=== PATIENT | female | born 1930 | race Caucasian/White ===

== ENCOUNTER → 2016-09-13 | Outpatient (CLI) | payer MEDICARE, OTHER | END | disposition home or self-care (01) | LOC: GMAJ 11:41 | PROVIDERS: ATTEND Family Medicine | DX: I10 Essential (primary) hypertension (principal); E78.00 Pure hypercholesterolemia, unspecified ==

== ENCOUNTER → 2016-10-21 | Outpatient (CLI) | payer MEDICARE, OTHER ==
--- NOTE | 2016-10-21 15:52 | RAD ---
History: Pain. Pelvis: AP film is compared with 2014 study. 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 Extensive osteoarthritis right hip is apparent in a significantly osteopenic patient. No bony lesion or acute complication. IMPRESSION: Osteoarthritis right hip with osteonecrosis complicating a left hip fixation, stable since 2014. Right knee: AP, notch view, lateral and sunrise films are obtained. Joint space loss in all three joint compartments with bony osteophytes and small joint effusion. Significant osteopenia. No definite loose body or acute bony complication. IMPRESSION: Osteoarthritis right knee. Osteopenia. Electronically signed by: Nely Edgar MD 10/21/2016 3:45 PM CDT
== END ==
LOC: RAD 08:09
PROVIDERS: ATTEND Orthopaedic Surgery
DX: M25.551 Pain in right hip (principal); M17.11 Unilateral primary osteoarthritis, right knee; M25.561 Pain in right knee; Z01.818 Encounter for other preprocedural examination

== ENCOUNTER → 2017-01-25 | Outpatient (CLI) | payer MEDICARE, OTHER | END | disposition home or self-care (01) | LOC: GMAJ 11:20 | PROVIDERS: ATTEND Family Medicine | DX: I10 Essential (primary) hypertension (principal) ==

== ENCOUNTER → 2017-05-16 | Emergency (ER) | payer MEDICARE, OTHER ==
[2017-05-16 13:17] VITALS: BP 169/79; TEMP 98; O2SAT 96
--- NOTE | 2017-05-16 13:24 | ED.PDOC ---
History of Present Illness - General Chief Complaint: Trauma Stated Complaint: right sided pain Time Seen by Provider: 05/16/17 13:19 Source: patient Exam Limitations: no limitations Additional Information: PT TRIPPED AND FELL. C/O PAIN TO R HIP, R DISTAL FEMUR, R FOOT. - History of Present Illness Timing/Duration: other - 4 DAYS, Severity: moderate Improving Factors: nothing Worsening Factors: movement, other - IS HAVING DIFFICULTY AMBULATING Allergies/Adverse Reactions: Allergies NO KNOWN ALLERGY Allergy (Verified 12/16/12 09:40) Home Medications: Ambulatory Orders Ferrous Sulfate 325 mg PO TID #0 02/02/13 Oxybutynin Chloride [Ditropan] 5 mg PO BID #0 tab 02/02/13 Pravastatin Sodium 40 mg PO HS #0 02/02/13 Acetaminophen [Tylenol] 500 mg PO Q4-6H PRN 03/16/13 Docusate Sodium [Dulcolax Stool Softener] 100 mg PO DAILY PRN 03/16/13 Polyethylene Glycol 3350 [Miralax] 17 gm PO DAILY PRN 03/16/13 Magnesium Hydroxide [Milk Of Magnesia] 15 ml PO DAILY PRN #0 03/18/13 Cholecalciferol [Vitamin D] 1,000 unit PO DAILY 08/19/15 Citalopram Hydrobromide 10 mg PO DAILY 08/19/15 Furosemide 40 mg PO DAILY 08/19/15 Losartan Potassium 100 mg PO DAILY 08/19/15 Meloxicam 7.5 mg PO BIDFD 08/19/15 Multiple Vitamins W/ Minerals [Multivitamin Adults] 1 tab PO DAILY 08/19/15 Omeprazole [Prilosec Cap] 20 mg PO ACBK 08/19/15 Potassium Chloride [Potassium Chloride ER] 10 meq PO DAILY 08/19/15 Albuterol Sulfate Nebs [Proventil Nebs] 2.5 mg INH TID #50 vial 08/20/15 Azithromycin Tab [Zithromax] 250 mg PO QD #4 tab 08/20/15 Bifidobacterium Infantis [Align] 4 mg PO BID #20 cap 08/20/15 Cefuroxime Axetil [Ceftin] 500 mg PO BID #14 tab 08/20/15 Acetaminophen W/ Codeine [Tylenol W/ CODEINE #3] 1 ea PO Q6HR PRN #24 05/16/17 Review of Systems - Review of Systems Constitutional: Denies: chills, fever, weakness EENTM: States: no symptoms reported Respiratory: States: no symptoms reported Cardiology: States: no symptoms reported Gastrointestinal/Abdominal: States: no symptoms reported Genitourinary: States: other - NO INCONTINENCE Musculoskeletal: States: other - PAIN R HIP, R DISTAL FEMUR, R FOOT. Denies: back pain, neck pain Skin: States: other - BRUISING R GREAT TOE Neurological: Denies: numbness, paresthesia, weakness Endocrine: States: no symptoms reported Hematologic/Lymphatic: States: no symptoms reported Past Medical History (General) - Patient Medical History Hx Seizures: No Hx Stroke: No Hx Asthma: No Hx of COPD: No Hx Cardiac Disorders: No Hx Congestive Heart Failure: Yes Hx Pacemaker: No Hx Hypertension: Yes Hx Diabetes: No Hx Gastroesophageal Reflux: Yes Hx MRSA: No Surgical History: cholecystectomy, other - Vaccination History Hx Tetanus, Diphtheria Vaccination: - unknown Hx Influenza Vaccination: Yes - 2015 Hx Pneumococcal Vaccination: Yes - 2016 - Social History Hx Tobacco Use: No Hx Alcohol Use: No Hx Substance Use: No Hx Physical Abuse: No Hx Emotional Abuse: No Family Medical History - Family History Mother Family History: Unknown Living Status: Physical Exam - Physical Exam General Appearance: Alert, Anxious, No apparent distress Eye Exam: bilateral normal Ears, Nose, Throat: hearing grossly normal, normal ENT inspection Neck: non-tender, full range of motion, supple Respiratory: lungs clear, normal breath sounds, no respiratory distress Cardiovascular/Chest: regular rate, rhythm, no murmur Gastrointestinal/Abdominal: non tender, soft, no organomegaly Back Exam: normal inspection, no CVA tenderness, no vertebral tenderness Extremity: normal capillary refill, other - TTP R HIP, PELVIS TENDER TO ROCK, NO INSTABILITY, NO EVIDENCE OF TRAUMA, MILD TTP DISTAL FEMUR, NO EVIDENCE OF TRAUMA, R FOOT NL BUT ECCHYMOSIS AND SWELLING TO R GREAT TOE, NO BONY DEFORMITY , NVI Neurologic: no motor/sensory deficits, normal mood/affect, oriented x 3 Skin Exam: warm/dry, other - BRUISING Lymphatic: no adenopathy Progress - Progress Progress: 05/16/17 D/W PT. SHE PREFERS TO GO HOME WITH HER . - EKG/XRAY/CT XRAY: pelvis - R SUPERIOR PUBIC RAMI FX. Departure - Departure Clinical Impression: Fracture of pubic ramus Qualifiers: Encounter type: initial encounter Fracture type: closed Laterality: right Qualified Code(s): S32.591A - Other specified fracture of right pubis, initial encounter for closed fracture Disposition: Discharge to Home or Self Care Condition: Fair Departure Forms: ED Discharge - Pt. Copy, Patient Portal Self Enrollment Instructions: DI for Trauma Referrals: Daniel Schuster MD [Primary Care Provider] - 1-2 Weeks Prescriptions: Acetaminophen W/ Codeine [Tylenol W/ CODEINE #3] 1 ea PO Q6HR PRN #24 PRN Reason: Pain Home Medications: Ambulatory Orders Ferrous Sulfate 325 mg PO TID #0 02/02/13 Oxybutynin Chloride [Ditropan] 5 mg PO BID #0 tab 02/02/13 Pravastatin Sodium 40 mg PO HS #0 02/02/13 Acetaminophen [Tylenol] 500 mg PO Q4-6H PRN 03/16/13 Docusate Sodium [Dulcolax Stool Softener] 100 mg PO DAILY PRN 03/16/13 Polyethylene Glycol 3350 [Miralax] 17 gm PO DAILY PRN 03/16/13 Magnesium Hydroxide [Milk Of Magnesia] 15 ml PO DAILY PRN #0 03/18/13 Cholecalciferol [Vitamin D] 1,000 unit PO DAILY 08/19/15 Citalopram Hydrobromide 10 mg PO DAILY 08/19/15 Furosemide 40 mg PO DAILY 08/19/15 Losartan Potassium 100 mg PO DAILY 08/19/15 Meloxicam 7.5 mg PO BIDFD 08/19/15 Multiple Vitamins W/ Minerals [Multivitamin Adults] 1 tab PO DAILY 08/19/15 Omeprazole [Prilosec Cap] 20 mg PO ACBK 08/19/15 Potassium Chloride [Potassium Chloride ER] 10 meq PO DAILY 08/19/15 Albuterol Sulfate Nebs [Proventil Nebs] 2.5 mg INH TID #50 vial 08/20/15 Azithromycin Tab [Zithromax] 250 mg PO QD #4 tab 08/20/15 Bifidobacterium Infantis [Align] 4 mg PO BID #20 cap 08/20/15 Cefuroxime Axetil [Ceftin] 500 mg PO BID #14 tab 08/20/15 Acetaminophen W/ Codeine [Tylenol W/ CODEINE #3] 1 ea PO Q6HR PRN #24 05/16/17
--- NOTE | 2017-05-16 22:00 | RAD ---
EXAM DESCRIPTION: Foot,Right 3 Views CLINICAL HISTORY: 87 years, Female, FALL WITH PAIN COMPARISON: None TECHNIQUE: AP, lateral, and oblique views of the right foot FINDINGS: Arthritic changes are present on a diffuse bases. Bones are hypodense consistent with osteopenia versus osteoporosis. No fracture or bone lesion is detected. IMPRESSION: No acute process observed Electronically signed by: Magdaleno Mir MD 05/16/2017 2:23 PM [facility]
--- NOTE | 2017-05-16 22:00 | RAD ---
EXAM DESCRIPTION: Hip,Right 2 Views CLINICAL HISTORY: 87 years, Female, FALL WITH PAIN COMPARISON: None TECHNIQUE: AP and frog leg lateral views of the right hip FINDINGS: Severe arthritic changes right hip with loss of the joint space and very prominent marginal osteophyte formation observed. No hip fracture. There is a subtle acute appearing transverse fracture through the midportion of the right inferior pubic ramus. There is almost certainly an associated superior pubic ramus fracture which is not visualized. IMPRESSION: 1. Right inferior pubic ramus fracture-acute 2. Severe arthritic changes right hip Electronically signed by: Magdaleno Mir MD 05/16/2017 2:27 PM [facility]
--- NOTE | 2017-05-16 22:00 | RAD ---
EXAM DESCRIPTION: Pelvis CLINICAL HISTORY: FALL WITH PAIN COMPARISON: October 21, 2016 IMPRESSION: Single AP supine view of the pelvis shows no evidence of acute fracture, focal bone destruction, or joint dislocation. Osseous structures are diffusely osteopenic. Intramedullary lucrecia and gamma nail fixation of a healed left intertrochanteric fracture is again seen. There is severe advanced osteoarthritic changes of the left hip again seen with complete loss of the joint space and sclerotic changes to the acetabulum and adjacent femoral head. There is severe joint space narrowing of the right hip with moderate circumferential osteophyte of the femoral head and osteophytic ridging of the superior lateral acetabulum. Similar severe osteoarthritic changes of the right hip. Electronically signed by: Calderon Ramirez MD 05/16/2017 2:24 PM [facility]
--- NOTE | 2017-05-16 22:00 | RAD ---
EXAM DESCRIPTION: Femur,Right CLINICAL HISTORY: 87 years Female, FALL WITH PAIN COMPARISON: None. FINDINGS: 4 views right femur shows severe degenerative changes of the hip joint with loss of the joint space and very prominent marginal osteophyte formation. There is no fracture or bone lesion. IMPRESSION: Degenerative changes, no acute process observed. Electronically signed by: Magdaleno Mir MD 05/16/2017 2:22 PM [facility] [[email or web address]]
== END | disposition home or self-care (01) ==
LOC: ER 12:39
DX: S32.591A Other specified fracture of right pubis, initial encounter for closed fracture (principal); I11.0 Hypertensive heart disease with heart failure; I50.9 Heart failure, unspecified; K21.9 Gastro-esophageal reflux disease without esophagitis; Z79.899 Other long term (current) drug therapy; W01.0XXA Fall on same level from slipping, tripping and stumbling without subsequent striking against object, initial encounter; Y92.9 Unspecified place or not applicable

== ENCOUNTER 2017-06-05 08:48 | Inpatient (IN) | payer MEDICARE, OTHER ==
--- NOTE | 2017-06-05 10:18 | RAD ---
Procedure: XR CHEST 1 VIEW, Exam Date: 06/05/2017 9:00 AM FRONT COUNTER ATTENDANT Ordering Provider: Henri Flowers Clinical Indication: mild hypoxia Comparison: None Findings: Heart size is enlarged. Bilateral perihilar interstitial septal prominence is noted which is relatively mild. No pleural effusion or pneumothorax. No acute osseous FMLA. Severe bilateral glenohumeral osteoarthritis. Impression: Mild bilateral perihilar interstitial septal prominence probably from chronic interstitial lung disease or mild vascular congestion. Cardiomegaly. Procedure: XR HIP 2 OR MORE VIEWS, XR PELVIS 1-2 VIEWS Exam Date: 06/05/2017 9:00 AM FRONT COUNTER ATTENDANT Ordering Provider: Henri Flowers Clinical Indication: Pelvic pain Comparison: None Findings: There is a 5 mm diastases involving the right inferior pubic ramus. Severe left hip joint space narrowing and spurring is present. Moderate right hip joint space narrowing and spurring is seen. Antegrade intramedullary lucreica with proximal and distal interlocking screws are present. The helical neck screw appears to be beyond the confines of the subchondral bone plate by approximately 1 mm. IMPRESSION: 5 mm diastases involving the right inferior pubic ramus. This may be acute or subacute. Acuity could be confirmed with MRI. Advanced left hip degenerative joint disease with suggestion of subchondral bone plate irregularity/mild collapse. The helical neck screw is slightly beyond the confines of the subchondral bone plate of the femoral head. Remaining hardware is intact. Moderate right hip degenerative joint disease. Electronically signed by: Savanna Enamorado MD 06/05/2017 10:17 AM [facility]
--- NOTE | 2017-06-05 10:18 | RAD ---
Procedure: XR CHEST 1 VIEW, Exam Date: 06/05/2017 9:00 AM SUBSTATION OPERATOR APPRENTICE Ordering Provider: Henri Flowers Clinical Indication: mild hypoxia Comparison: None Findings: Heart size is enlarged. Bilateral perihilar interstitial septal prominence is noted which is relatively mild. No pleural effusion or pneumothorax. No acute osseous FMLA. Severe bilateral glenohumeral osteoarthritis. Impression: Mild bilateral perihilar interstitial septal prominence probably from chronic interstitial lung disease or mild vascular congestion. Cardiomegaly. Procedure: XR HIP 2 OR MORE VIEWS, XR PELVIS 1-2 VIEWS Exam Date: 06/05/2017 9:00 AM SUBSTATION OPERATOR APPRENTICE Ordering Provider: Henri Flowers Clinical Indication: Pelvic pain Comparison: None Findings: There is a 5 mm diastases involving the right inferior pubic ramus. Severe left hip joint space narrowing and spurring is present. Moderate right hip joint space narrowing and spurring is seen. Antegrade intramedullary lucrecia with proximal and distal interlocking screws are present. The helical neck screw appears to be beyond the confines of the subchondral bone plate by approximately 1 mm. IMPRESSION: 5 mm diastases involving the right inferior pubic ramus. This may be acute or subacute. Acuity could be confirmed with MRI. Advanced left hip degenerative joint disease with suggestion of subchondral bone plate irregularity/mild collapse. The helical neck screw is slightly beyond the confines of the subchondral bone plate of the femoral head. Remaining hardware is intact. Moderate right hip degenerative joint disease. Electronically signed by: Savanna Enamorado MD 06/05/2017 10:17 AM [facility]
--- NOTE | 2017-06-05 10:18 | RAD ---
Procedure: XR CHEST 1 VIEW, Exam Date: 06/05/2017 9:00 AM DOCK HAND Ordering Provider: Henri Flowers Clinical Indication: mild hypoxia Comparison: None Findings: Heart size is enlarged. Bilateral perihilar interstitial septal prominence is noted which is relatively mild. No pleural effusion or pneumothorax. No acute osseous FMLA. Severe bilateral glenohumeral osteoarthritis. Impression: Mild bilateral perihilar interstitial septal prominence probably from chronic interstitial lung disease or mild vascular congestion. Cardiomegaly. Procedure: XR HIP 2 OR MORE VIEWS, XR PELVIS 1-2 VIEWS Exam Date: 06/05/2017 9:00 AM DOCK HAND Ordering Provider: Henri Flowers Clinical Indication: Pelvic pain Comparison: None Findings: There is a 5 mm diastases involving the right inferior pubic ramus. Severe left hip joint space narrowing and spurring is present. Moderate right hip joint space narrowing and spurring is seen. Antegrade intramedullary lucrecia with proximal and distal interlocking screws are present. The helical neck screw appears to be beyond the confines of the subchondral bone plate by approximately 1 mm. IMPRESSION: 5 mm diastases involving the right inferior pubic ramus. This may be acute or subacute. Acuity could be confirmed with MRI. Advanced left hip degenerative joint disease with suggestion of subchondral bone plate irregularity/mild collapse. The helical neck screw is slightly beyond the confines of the subchondral bone plate of the femoral head. Remaining hardware is intact. Moderate right hip degenerative joint disease. Electronically signed by: Savanna Enamorado MD 06/05/2017 10:17 AM [facility]
[2017-06-05] MEDS ORDERED: FUROSEMIDE 40 MG TAB PO ONE (10:32)
--- NOTE | 2017-06-05 12:06 | CT ---
Procedure: CT PELVIS WITHOUT IV CONTRAST Exam Date: 06/05/2017 10:33 AM PRESS MACHINE OPERATOR Ordering Provider: Henri Flowers Clinical Indication: Revaluate pelvic fxr and left hip pain Comparison: Radiographs June 05, 2017 TECHNIQUE: The pelvis was scanned utilizing a multidetector helical scanner after administration of low osmolar IV contrast. Coronal and sagittal reformations were obtained. This exam was performed according to our departmental dose-optimization program which includes automated exposure control, adjustment of the mA and/or kV according to patient size and/or use of iterative reconstruction technique. DISCUSSION: There is evidence of a fracture involving the right superior pubic root without significant articular surface step-off. This fracture appears to be nondisplaced. There is an additional fracture involving the right inferior pubic ramus with one full shaft width displacement of the fracture fragment. This fracture appears to be subacute. There is surrounding mild callus formation. There is evidence of severe left hip joint space narrowing and degenerative spurring. Prominent subchondral cystic changes present. The femoral neck helical screw appears to abut the subchondral bone plate without steve extension beyond the confines of the bone. The intramedullary lucrecia appears to be intact proximally. Moderate right hip joint space narrowing and degenerative spurring is present. Intrapelvic contents demonstrate no acute abnormality. No free fluid or pathologic adenopathy is present. IMPRESSION: Subacute nondisplaced fracture of the right superior pubic root. Subacute displaced fracture of the right inferior pubic ramus. Advanced left hip joint osteoarthritis. Moderate right hip joint osteophyte arthritis. Electronically signed by: Savanna Enamorado MD 06/05/2017 12:05 PM PRESS MACHINE OPERATOR
[2017-06-05] MEDS ORDERED: FUROSEMIDE INJ 20 MG/2 ML VIAL IV ONE (12:39)
[2017-06-05] MEDS ORDERED: MORPHINE SULFATE INJ 10 MG/ML VIAL IV ONE (12:40)
--- NOTE | 2017-06-05 12:43 | ED.PDOC ---
History of Present Illness - General Chief Complaint: Lower Extremity Injury Stated Complaint: left hip pain Time Seen by Provider: 06/05/17 08:59 Source: patient, family Exam Limitations: no limitations - History of Present Illness Initial Comments: The patient is an 87-year-old female presenting to the emergency room from home by ambulance secondary to inability to get out of bed and move around. The patient apparently had a pubic rami fracture noted around Thanksgiving for which her pushed her around in a wheelchair for a week or 2 and then she started getting around with a walker. Over the last for 5 days she's been having some increasing pelvic and hip pain. No falls. She is alert and oriented and pleasant. She is also noted that she has had some increasing shortness of breath lying back over the last 5 or 6 days. No fever. No chest pain. No palpitations. No syncope or near syncope. She does report a history of some congestive heart failure.oxygen saturations here were around 85% with the patient lying back and awake. She does correct with supplemental oxygen. Timing/Duration: 1 week Severity: moderate Improving Factors: immobilization Worsening Factors: movement Associated Symptoms: denies symptoms Allergies/Adverse Reactions: Allergies NO KNOWN ALLERGY Allergy (Verified 12/16/12 09:40) Home Medications: Ambulatory Orders Ferrous Sulfate 325 mg PO TID #0 02/02/13 Oxybutynin Chloride [Ditropan] 5 mg PO BID #0 tab 02/02/13 Pravastatin Sodium 40 mg PO HS #0 02/02/13 Acetaminophen [Tylenol] 500 mg PO Q4-6H PRN 03/16/13 Docusate Sodium [Dulcolax Stool Softener] 100 mg PO DAILY PRN 03/16/13 Polyethylene Glycol 3350 [Miralax] 17 gm PO DAILY PRN 03/16/13 Magnesium Hydroxide [Milk Of Magnesia] 15 ml PO DAILY PRN #0 03/18/13 Cholecalciferol [Vitamin D] 1,000 unit PO DAILY 08/19/15 Citalopram Hydrobromide 10 mg PO DAILY 08/19/15 Furosemide 40 mg PO DAILY 08/19/15 Losartan Potassium 100 mg PO DAILY 08/19/15 Meloxicam 7.5 mg PO BIDFD 08/19/15 Multiple Vitamins W/ Minerals [Multivitamin Adults] 1 tab PO DAILY 08/19/15 Omeprazole [Prilosec Cap] 20 mg PO ACBK 08/19/15 Potassium Chloride [Potassium Chloride ER] 10 meq PO DAILY 08/19/15 Albuterol Sulfate Nebs [Proventil Nebs] 2.5 mg INH TID #50 vial 08/20/15 Acetaminophen W/ Codeine [Tylenol W/ CODEINE #3] 1 ea PO Q6HR PRN #24 05/16/17 Lisinopril 10 mg PO DAILY 06/05/17 Metoprolol Tartrate 50 mg PO DAILY 06/05/17 Review of Systems - Review of Systems Constitutional: States: no symptoms reported EENTM: States: no symptoms reported Respiratory: States: short of breath - ith activity and lying back Cardiology: States: no symptoms reported Gastrointestinal/Abdominal: States: no symptoms reported Genitourinary: States: no symptoms reported Musculoskeletal: States: see HPI Skin: States: no symptoms reported Neurological: States: no symptoms reported Endocrine: States: no symptoms reported All other Systems: No Change from Baseline Past Medical History (General) - Patient Medical History Hx Seizures: No Hx Stroke: No Hx Asthma: No Hx of COPD: No Hx Cardiac Disorders: No Hx Congestive Heart Failure: Yes Hx Pacemaker: No Hx Hypertension: Yes Hx Diabetes: No Hx Gastroesophageal Reflux: Yes Hx MRSA: No - Vaccination History Hx Tetanus, Diphtheria Vaccination: - unknown Hx Influenza Vaccination: Yes - 2015 Hx Pneumococcal Vaccination: Yes - 2016 - Social History Hx Tobacco Use: No Hx Alcohol Use: No Hx Substance Use: No Hx Physical Abuse: No Hx Emotional Abuse: No Family Medical History - Family History Mother Family History: Unknown Living Status: Physical Exam - Physical Exam General Appearance: Alert, No apparent distress Eye Exam: bilateral normal Ears, Nose, Throat: hearing grossly normal, normal ENT inspection, normal pharynx Neck: full range of motion, supple Respiratory: no respiratory distress, no accessory muscle use, other - mild bibasilar Rales Cardiovascular/Chest: normal peripheral pulses, no edema, other - regular rate Peripheral Pulses: radial,right: 2+, radial,left: 2+, dorsalis pedis,right: 2+, dorsalis pedis,left: 2+ Gastrointestinal/Abdominal: non tender, soft Rectal Exam: other - mild suprapubic discomfort palpation. Back Exam: no CVA tenderness, no vertebral tenderness Extremity: no calf tenderness, normal capillary refill, pedal edema - + edema bilateral lower extremities, other - pain in the pelvis withmovement against gravity in bilateral lower extremities. Passive range of motion is largely painless. Neurologic: choir accompanist II-XII nml as tested, alert, normal mood/affect, oriented x 3 Skin Exam: normal color Comments: Vital Signs - 24 hr 06/05/17 06/05/17 06/05/17 09:03 09:42 11:32 Temperature 98.6 F 98.5 F Pulse Rate [ 65 64 67 Left Brachial] Respiratory 20 18 20 Rate Blood Pressure 202/93 162/74 158/67 [Left Arm] O2 Sat by Pulse 87 L 95 93 L Oximetry Progress - Progress Progress: 06/05/17 12:45 the patient is an 87-year-old female presenting with worsening pain from what appears to be a nonhealing inferior and superior pubic rami fracture on the right. The patient for now is going to require bed rest. The patient will be admitted for pain management. She may yet require a Arias catheter. Orthopedics can evaluate in the morning for any further recommendations. Additionally the patient does appear to be having a CHF exacerbation that is mild in nature. We are going to diurese her today. Continue oxygen supplementation. Continue monitoring otherwise for now. She may yet need placement in a rehabilitation facility in order to heal the fractures and become functional again. - Results/Orders Results/Orders: Laboratory Tests 06/05/17 06/05/17 06/05/17 09:17 09:17 09:17 WBC 6.0 RBC 3.97 L Hgb 12.1 Hct 35.1 L MCV 88.3 MCH 30.4 MCHC 34.4 RDW 15.2 H Plt Count 199 MPV 7.8 Absolute Neuts (auto) 4.40 Absolute Lymphs (auto) 1.00 Absolute Monos (auto) 0.40 Absolute Eos (auto) 0.20 Absolute Basos (auto) 0.10 Neutrophils % 72.6 Lymphocytes % 16.0 L Monocytes % 7.5 Eosinophils % 3.0 Basophils % 0.9 D-Dimer, Quantitative 633 H* Sodium 134 L Potassium 4.3 Chloride 98 L Carbon Dioxide 28 Anion Gap 12.3 BUN 17 Creatinine 0.87 BUN/Creatinine Ratio 19.5 Random Glucose 111 H Serum Osmolality 270.5 L Calcium 9.5 Total Bilirubin 0.7 AST 38 ALT 27 Alkaline Phosphatase 83 Creatine Kinase 28 CK-MB (CK-2) 0.9 CK-MB (CK-2) % Not Reportable Troponin I < 0.02 B-Natriuretic Peptide 543.0 H* Serum Total Protein 7.4 Albumin 3.5 Globulin 3.9 H Albumin/Globulin Ratio 0.9 L chest x-ray does show some cardiomegaly and cephalization. No overt pneumonia. Pelvic x-ray shows a pubic rami fracture. CT scan of the pelvis shows subacute nondisplaced fracture of the right superior pubic rami. She also has subacute displaced fracture of the right inferior pubic rami. Departure - Departure Clinical Impression: Pelvic ring fracture with nonunion Acute exacerbation of CHF (congestive heart failure) Qualifiers: Congestive heart failure type: unspecified congestive heart failure type Qualified Code(s): I50.9 - Heart failure, unspecified Disposition: Admit Patient Home Medications: Ambulatory Orders Ferrous Sulfate 325 mg PO TID #0 02/02/13 Oxybutynin Chloride [Ditropan] 5 mg PO BID #0 tab 02/02/13 Pravastatin Sodium 40 mg PO HS #0 02/02/13 Acetaminophen [Tylenol] 500 mg PO Q4-6H PRN 03/16/13 Docusate Sodium [Dulcolax Stool Softener] 100 mg PO DAILY PRN 03/16/13 Polyethylene Glycol 3350 [Miralax] 17 gm PO DAILY PRN 03/16/13 Magnesium Hydroxide [Milk Of Magnesia] 15 ml PO DAILY PRN #0 03/18/13 Cholecalciferol [Vitamin D] 1,000 unit PO DAILY 08/19/15 Citalopram Hydrobromide 10 mg PO DAILY 08/19/15 Furosemide 40 mg PO DAILY 08/19/15 Losartan Potassium 100 mg PO DAILY 08/19/15 Meloxicam 7.5 mg PO BIDFD 08/19/15 Multiple Vitamins W/ Minerals [Multivitamin Adults] 1 tab PO DAILY 08/19/15 Omeprazole [Prilosec Cap] 20 mg PO ACBK 08/19/15 Potassium Chloride [Potassium Chloride ER] 10 meq PO DAILY 08/19/15 Albuterol Sulfate Nebs [Proventil Nebs] 2.5 mg INH TID #50 vial 08/20/15 Acetaminophen W/ Codeine [Tylenol W/ CODEINE #3] 1 ea PO Q6HR PRN #24 05/16/17 Lisinopril 10 mg PO DAILY 06/05/17 Metoprolol Tartrate 50 mg PO DAILY 06/05/17 Decision To Admit - Decistion To Admit Decision to Admit Reason: Medical Nature Decision to Admit Date: 06/05/17 Decision to Admit Time: 12:47
--- NOTE | 2017-06-05 13:45 | HP ---
SUPERVISING PHYSICIAN: Daniel Schuster M.D. CHIEF COMPLAINT: Lower extremity injury. Left hip pain. HISTORY OF PRESENT ILLNESS: Ms. Wolfe is an 87 year-old white female who appears her stated age. She is well-developed, well-nourished. She does not appear to be in any acute distress, however she does appear to be in pain any time she moves. She was unable to get out of bed today or move around and was brought to the Emergency Room by ambulance. She was evaluated there by Dr. Henri Flowers. She apparently fractured her pubic rami around Thanksgiving and states that she was wheelchair bound for a couple of weeks, then started getting around with a walker. Over the last few days she began to have increased pelvic pain and hip pain. She denies any falls. She is alert and oriented and very pleasant. She states that she also has been having some increased shortness of breath when lying on her back and has to prop up on pillows for the last 5 to 6 days. She denies fever, chest pain, palpitations, syncope or near syncopal episodes. She does report a history of some congestive heart failure and her saturations in the Emergency Room were around 85% when lying down. She does correct the desaturated state with oxygen supplementation. Dr. Flowers evaluated the patient with a chest x-ray indicating some cardiomegaly and no overt pneumonia. Her pelvic x-ray indicated a pelvic rami fracture. CT scan of the pelvis showed a subacute nondisplaced fracture of the right superior pubic rami. She also had a subacute displaced fracture of the right inferior pubic rami. Her blood count was benign. Her metabolic panel showed a slight electrolyte imbalance. Sodium was 134, potassium 4.3, chloride 98, CO2 was 28, BUN 17, creatinine 0.87, random glucose 111, calcium 9.5. AST 38, ALT 27, total bilirubin 0.7, alkaline phosphatase 83. CK was 28, CK-MB 0.9, troponin I was 0.02. BNP was 543. Total protein 7.4, albumin 35. The patient was then admitted to the Medical/ Surgical floor as an inpatient in stable condition for the displaced pelvic fracture, congestive heart failure and intractable pain. PAST MEDICAL HISTORY: 1. Hypertension. 2. Osteoarthritis. 3. Gastroesophageal reflux disease. 4. Constipation. 5. Incontinence of urine. 6. Diverticulosis. PAST SURGICAL HISTORY: 1. Cholecystectomy. 2. Hysterectomy. 3. Left hip replacement with surgical reduction and internal fixation in 2013. HOME MEDICATIONS: 1. Ferrous sulfate 325 mg p.o. t.i.d. 2. Ditropan 5 mg p.o. b.i.d. 3. Pravastatin 40 mg p.o. every h.s. 4. Tylenol 500 mg every 4 hours p.r.n. 5. Dulcolax stool softener 100 mg p.o. daily p.r.n. 6. MiraLAX 17 grams p.o. daily p.r.n. 7. Milk of Magnesia 15 mL p.o. daily p.r.n. 8. Vitamin D 1,000 international units p.o. daily. 9. Citalopram 10 mg p.o. daily. 10. Furosemide 40 mg p.o. daily. 11. Losartan potassium 100 mg p.o. daily. 12. Meloxicam 7.5 mg p.o. b.i.d. with food. 13. Multivitamin with minerals 1 tab p.o. daily. 14. Omeprazole 20 mg p.o. a.c. breakfast. 15. Potassium chloride 10 mEq p.o. daily. 16. Albuterol sulfate nebulized 2.5 mg inhaled t.i.d. 17. Tylenol with codeine #3, one p.o. every 6 hours p.r.n. pain. 18. Lisinopril 10 mg p.o. daily. 19. Metoprolol tartrate 50 mg p.o. daily. ALLERGIES: NO KNOWN DRUG ALLERGIES. FAMILY HISTORY: Unremarkable. SOCIAL HISTORY: She is . She lives in [place]. She has never smoked and is a nondrinker of alcohol. REVIEW OF SYSTEMS: CONSTITUTIONAL: No symptoms reported. ENT: No symptoms reported. RESPIRATORY: Short of breath with activity and lying on her back. CARDIOLOGY: No symptoms reported. GASTROINTESTINAL: No symptoms reported. GENITOURINARY: No symptoms reported. MUSCULOSKELETAL: See history of present illness. SKIN: No symptoms reported. NEUROLOGIC: No symptoms reported. ENDOCRINE: No symptoms reported. PHYSICAL EXAMINATION: VITAL SIGNS: Temperature 98.7, pulse 62, blood pressure 144/70, respiratory rate 22, oxygen saturation 97 with 2 liters nasal cannula. GENERAL: Alert. No apparent distress. She does appear to be in pain. HEENT: Pupils equal, round and reactive to light. Conjunctiva are clear. Sclera are clear and white. NECK: Soft and supple with no lymphadenopathy. Full range of motion. RESPIRATORY: Respiratory effort is even and unlabored. Breath sounds are clear to auscultation bilaterally with mild bibasilar rales. No murmurs, clicks or rubs. CARDIOVASCULAR: Regular rate and rhythm. Normal S1 and S2. Normal peripheral pulses. No edema. ABDOMEN: Soft. Bowel sounds are active in all 4 quadrants. No tenderness noted. No organomegaly. No masses palpated. EXTREMITIES: No calf tenderness. Normal capillary refill. There is only mild bilateral edema of the lower extremities bilaterally. Pain in the pelvis with movement against gravity and bilateral lower extremities. Passive range of motion is largely painless. PSYCHIATRIC: She has normal mood and affect. She is awake, alert and oriented times three. SKIN: Warm and dry. Normal color. LABORATORY: See History of Present Illness for laboratory and radiology. ASSESSMENT: 1. Displaced pelvic fracture. 2. Congestive heart failure. 3. Intractable pain. PLAN: Ms. Wolfe was admitted to the Medical/Surgical floor for further treatment and evaluation of her displaced pelvic fracture, congestive heart failure and intractable pain. She will be given routine pain medications to control her discomfort. She was given diuretic in the Emergency Room. She will be monitored throughout the night for worsening or improving of her congestive heart failure symptomatology. Dr. Pat will be consulted tomorrow regarding her displaced pelvic fracture. Physical Therapy will also be consulted for evaluation and treatment of her pelvic fracture as well as Electric [employer] Assembler for possible rehabilitation hospital admission. We anticipate her length of stay to be approximately 3 days. We will continue to monitor the patient closely and treat appropriately. Daniel Schuster M.D. is the physician collaborator who is available by telephone. [facility][id number] [facility]
[2017-06-05] MEDS ORDERED: SODIUM CHLORIDE 0.9% (FLUSH) 10 ML SYG IV PRN ×3 (17:21→17:30)
[2017-06-05] MEDS ORDERED: HYDROcodone 5MG/APAP 325MG 1 EA TAB PO PRN (17:26)
[2017-06-05] MEDS ORDERED: NITROGLYCERIN 0.4 MG 25 EA TAB SL PRN (17:30)
[2017-06-05] MEDS ORDERED: ENOXAPARIN SODIUM 40 MG/0.4 ML SYG SUBCU SCH (17:30)
[2017-06-05] MEDS ORDERED: IV SET AND CAP CHANGE INJ INJ SCH ×3 (17:30)
[2017-06-05] MEDS ORDERED: POLYETHYLENE GLYCOL 3350 17 GM PCKT PO PRN (20:54)
[2017-06-05] MEDS ORDERED: ACETAMINOPHEN 500 MG TAB PO PRN (20:54)
[2017-06-05] MEDS ORDERED: DOCUSATE SODIUM 100 MG CAP PO PRN (20:54)
[2017-06-05] MEDS ORDERED: ACETAMINOPHEN W/COD #3 TAB 1 EA TAB PO PRN (20:54)
[2017-06-05] MEDS ORDERED: MAGNESIUM HYDROXIDE 30 ML UD PO PRN (20:54)
[2017-06-05] MEDS ORDERED: NON-FORMULARY MEDICATION 1 EA MIS (Ferrous Sulfate [Ferrous Sulfate] 325 MG) PO SCH (21:00)
[2017-06-05] MEDS ORDERED: NON-FORMULARY MEDICATION 1 EA MIS (Pravastatin Sodium [Pravastatin Sodium] 40 MG) PO SCH (21:00)
[2017-06-05] MEDS ORDERED: FERROUS SULFATE 325 MG TAB ONE (21:28)
[2017-06-05] MEDS ORDERED: PRAVASTATIN SODIUM 20 MG TAB ONE (21:28)
[2017-06-05] MEDS: HYDROcodone 5MG/APAP 325MG 1 EA TAB PO SCH (21:37)
[2017-06-05] MEDS: SODIUM CHLORIDE 0.9% (FLUSH) 10 ML SYG IV SCH (21:37)
[2017-06-05] MEDS: OXYBUTYNIN CL 5 MG TAB PO SCH (21:39)
[2017-06-05] MEDS: ALBUTEROL SULFATE 2.5 MG/3 ML VIAL NEB SCH (22:58)
[2017-06-06] MEDS ORDERED: OMEPRAZOLE CAP 20 MG CAP PO SCH (07:00)
[2017-06-06] MEDS: MELOXICAM 7.5 MG TAB PO SCH ×2 (07:44→17:32)
[2017-06-06] MEDS ORDERED: METOPROLOL TARTRATE 50 MG TAB PO SCH (09:00)
[2017-06-06] MEDS: ALBUTEROL SULFATE 2.5 MG/3 ML VIAL NEB SCH ×3 (09:08→20:41)
[2017-06-06] MEDS: HYDROcodone 5MG/APAP 325MG 1 EA TAB PO SCH (10:52)
[2017-06-06] MEDS: LOSARTAN POTASSIUM 100 MG TAB PO SCH (10:52)
[2017-06-06] MEDS: MULTIPLE VITAMINS W/ MINERALS 1 EA TAB PO SCH (10:53)
[2017-06-06] MEDS: CHOLECALCIFEROL 2,000 IU TAB PO SCH (10:54)
[2017-06-06] MEDS: CITALOPRAM HBR 20 MG TAB PO SCH (10:55)
[2017-06-06] MEDS: SODIUM CHLORIDE 0.9% (FLUSH) 10 ML SYG IV SCH ×2 (10:56→20:55)
[2017-06-06] MEDS: FUROSEMIDE 40 MG TAB PO SCH (10:56)
[2017-06-06] MEDS: OXYBUTYNIN CL 5 MG TAB PO SCH ×2 (10:56→20:54)
[2017-06-06] MEDS: POTASSIUM CHLORIDE 10 MEQ TAB PO SCH (10:56)
[2017-06-06] MEDS: METOPROLOL SUCCINATE XL 50 MG TAB PO SCH (12:47)
[2017-06-06] MEDS: FERROUS SULFATE 325 MG TAB PO SCH ×2 (12:47→17:32)
--- NOTE | 2017-06-06 18:45 | PN ---
DATE: 06/06/17 SUPERVISING PHYSICIAN: Ricki Flowers M.D. SUBJECTIVE: The patient is lying in her hospital bed. She has no complaints of chest pain, shortness of breath, nausea or vomiting. Her pain is fairly well controlled but she says she still gets sore quite frequently and she is concerned about what she is supposed to do after she is discharged. OBJECTIVE: VITAL SIGNS: She is afebrile, heart rate 64, blood pressure 122/69, respiratory rate 20, O2 sat is 98%. RESPIRATORY: Clear to auscultation bilaterally. CARDIAC: Regular rate and rhythm. GASTROINTESTINAL: Abdomen is soft, nondistended, non-tender. Bowel sounds are positive. EXTREMITIES: No cyanosis, clubbing or edema. NEUROLOGIC: She is alert and oriented times three. LABORATORY: WBCs are 4.7 with hemoglobin 11.8, hematocrit 35.1. Chemistries are basically within normal limits with the exception of her chloride is slightly low at 95, BNP is 219. All other labs and films have been reviewed via the EMR. ASSESSMENT: 1. Subacute nondisplaced fracture of the right superior pubic root. 2. Subacute displaced fracture of the right inferior pubic ramus. 3. Congestive heart failure of unknown etiology with a BNP on admission of 543. 4. Intractable pain. PLAN: We will continue present supportive care. It would be beneficial to call Dr. Schuster' office tomorrow to see if there is a recent echo available. I will also order a chest x-ray in the morning as well as some routine labs. We will await Dr. Pat's consultation before planning discharge. Most likely will need to go to a rehab facility. She will continue with her physical therapy. I have ordered some routine lab for in the morning. Meanwhile we will continue to monitor closely and followup as needed. Dr. Flowers is the collaborating physician available for consultation. #[id number] [facility]
[2017-06-06] MEDS: PRAVASTATIN SODIUM 20 MG TAB PO SCH (20:54)
[2017-06-06] MEDS: ENOXAPARIN SODIUM 40 MG/0.4 ML SYG SUBCU SCH (20:55)
[2017-06-07] MEDS ORDERED: OMEPRAZOLE CAP 20 MG CAP ONE (01:49)
[2017-06-07] MEDS: OMEPRAZOLE CAP 20 MG CAP PO SCH (06:27)
--- NOTE | 2017-06-07 07:15 | RAD ---
EXAM DESCRIPTION: Chest,1 View CLINICAL HISTORY: chf COMPARISON: June 05, 2017 FINDINGS: The heart is enlarged but stable. Mediastinal contours are otherwise unremarkable. There is no airspace consolidation or pleural effusion. Again seen is subtle interstitial prominence in both lungs. There is no pneumothorax or acute fracture. IMPRESSION: Cardiomegaly and possible mild central pulmonary vascular congestion versus chronic interstitial lung disease. Electronically signed by: Axel Munoz MD 06/07/2017 7:14 AM [employer]
[2017-06-07] MEDS: FERROUS SULFATE 325 MG TAB PO SCH ×3 (07:21→17:26)
[2017-06-07] MEDS: POTASSIUM CHLORIDE 10 MEQ TAB PO SCH (07:21)
[2017-06-07] MEDS: MELOXICAM 7.5 MG TAB PO SCH ×2 (07:23→17:26)
[2017-06-07] MEDS: ALBUTEROL SULFATE 2.5 MG/3 ML VIAL NEB SCH ×3 (07:35→19:45)
--- NOTE | 2017-06-07 08:25 | CONS ---
HISTORY OF PRESENT ILLNESS: Ms. Wolfe is an 87-year-old female that fell. She has actually fallen a couple of times over the course of the past few weeks. She fell recently and was having some pain for which she was admitted. The pain she complains of is more in the left shoulder than anything else. She states she did have some pain in the right knee as well. Currently, she is doing well and is resting without any significant discomfort. I was consulted because x-rays revealed a fracture which was subsequently evaluated with a CT scan. Ms. Wolfe is actually not complaining of significant pain in the pelvic region. PAST MEDICAL HISTORY: 1. Hypertension. 2. Arthritis. 3. Gastroesophageal reflux disease. 4. Constipation. 5. Diverticulosis. PAST SURGICAL HISTORY: 1. Cholecystectomy. 2. Hysterectomy. 3. Intramedullary nailing of the left hip. CURRENT MEDICATIONS: Please see the current nursing assessment for an up to date list. ALLERGIES: NO KNOWN DRUG ALLERGIES. SOCIAL HISTORY: The patient does not drink, smoke or use any illicit drugs. FAMILY HISTORY: None pertinent to today's complaint. REVIEW OF SYSTEMS: Negative except as indicated in the History of Present Illness. PHYSICAL EXAMINATION: VITAL SIGNS: Blood pressure 144/70. Respirations 22. O2 saturation 97%. MENTAL STATUS: The patient is awake, alert, and is able to give a good history and participate in the physical. The patient is oriented to person, place and time. SKIN: Normal tone and turgor. HEENT: Normocephalic, atraumatic. Pupils equal, round and reactive. Mucosal membranes are moist. NECK: Normal range of motion. No thyromegaly, no lymphadenopathy. CHEST: Normal respiratory excursion. CARDIAC: Regular rate and rhythm. No murmurs, rubs or gallops. MUSCULOSKELETAL: She has intact sensation in both upper extremities. She is moving them freely and there are no outward signs of trauma and no deformities. She does have pain to palpation in the left shoulder, but it is relatively minor. Otherwise, she has no pain and no difficulty with movement of the lower arm. The pelvis does not cause significant pain with palpation over the pubic ramus. She has no significant pain to anterior/posterior compression of the iliac wings. Sensation is intact in both extremities. She does have pain in the knee to palpation. There is no significant swelling, bruising or outward signs of trauma. There is no deformity. IMAGING: X-rays of the pelvis show a superior and inferior ramus fracture on the right. She had no x-rays of the shoulder or knee done. ASSESSMENT: 1. Pelvis fracture. 2. Shoulder pain. 3. Knee pain. PLAN: At this point, I think the pelvis is stable enough for her to ambulate. We are going to get x-rays on both her knee and her shoulder and to make sure she does not have any breaks there. Otherwise, I think it will be okay for her to begin at least partial weight-bearing and progress as tolerated. X-rays have been ordered and we will review those after they are done. #[id number] [facility]
--- NOTE | 2017-06-07 09:04 | RAD ---
Right knee 3 views INDICATION: Knee pain chronic IMPRESSION: Bones are osteopenic. Advanced osteoarthrosis throughout the knee. No acute fracture or aggressive destructive process. Small suprapatellar effusion. Advanced lateral tibiofemoral and patellofemoral joint space narrowing. Electronically signed by: Phoenix Coleman MD 06/07/2017 9:03 AM [facility]
--- NOTE | 2017-06-07 09:06 | RAD ---
Left shoulder 1 view INDICATION: Shoulder pain IMPRESSION: Limited one view left shoulder. Advanced osteoarthrosis of the glenohumeral joint. Bones are osteopenic. Mild osteoarthrosis of the AC joint limited. No evidence of acute fracture or focal destructive process Electronically signed by: Phoenix Coleman MD 06/07/2017 9:05 AM [facility]
[2017-06-07] MEDS: SODIUM CHLORIDE 0.9% (FLUSH) 10 ML SYG IV SCH ×2 (09:46→20:44)
[2017-06-07] MEDS: MULTIPLE VITAMINS W/ MINERALS 1 EA TAB PO SCH (09:46)
[2017-06-07] MEDS: LOSARTAN POTASSIUM 100 MG TAB PO SCH (09:47)
[2017-06-07] MEDS: FUROSEMIDE 40 MG TAB PO SCH (09:48)
[2017-06-07] MEDS: CITALOPRAM HBR 20 MG TAB PO SCH (09:48)
[2017-06-07] MEDS: OXYBUTYNIN CL 5 MG TAB PO SCH ×2 (09:49→20:45)
[2017-06-07] MEDS: METOPROLOL SUCCINATE XL 50 MG TAB PO SCH (09:49)
[2017-06-07] MEDS: CHOLECALCIFEROL 2,000 IU TAB PO SCH (09:50)
--- NOTE | 2017-06-07 12:27 | RAD ---
EXAM DESCRIPTION: Shoulder,Left 2 or More Views CLINICAL HISTORY: pain COMPARISON: Same date earlier time IMPRESSION: 4 views of the left shoulder again demonstrate diffuse osteopenia of the osseous structures. No acute appearing fracture, focal bone destruction, or joint dislocation is seen. Severe narrowing of the glenohumeral joint is seen with hypertrophic osteophytic ridging of the glenoid with severe osteoarthritic changes. Mild osteoarthritic changes of the acromioclavicular joint are seen. Electronically signed by: Calderon Ramirez MD 06/07/2017 12:26 PM [facility]
[2017-06-07] MEDS: PRAVASTATIN SODIUM 20 MG TAB PO SCH (20:44)
[2017-06-07] MEDS: ENOXAPARIN SODIUM 40 MG/0.4 ML SYG SUBCU SCH (20:44)
[2017-06-08] MEDS: OMEPRAZOLE CAP 20 MG CAP PO SCH (06:25)
[2017-06-08] MEDS: MELOXICAM 7.5 MG TAB PO SCH (08:01)
[2017-06-08] MEDS: MULTIPLE VITAMINS W/ MINERALS 1 EA TAB PO SCH (08:01)
[2017-06-08] MEDS: CHOLECALCIFEROL 2,000 IU TAB PO SCH (08:01)
[2017-06-08] MEDS: POTASSIUM CHLORIDE 10 MEQ TAB PO SCH (08:01)
[2017-06-08] MEDS: FUROSEMIDE 40 MG TAB PO SCH (08:01)
[2017-06-08] MEDS: LOSARTAN POTASSIUM 100 MG TAB PO SCH (08:01)
[2017-06-08] MEDS: METOPROLOL SUCCINATE XL 50 MG TAB PO SCH (08:01)
[2017-06-08] MEDS: CITALOPRAM HBR 20 MG TAB PO SCH (08:01)
[2017-06-08] MEDS: OXYBUTYNIN CL 5 MG TAB PO SCH (08:01)
[2017-06-08] MEDS: FERROUS SULFATE 325 MG TAB PO SCH ×2 (08:02→11:29)
[2017-06-08] MEDS: SODIUM CHLORIDE 0.9% (FLUSH) 10 ML SYG IV SCH ×2 (08:04→08:06)
--- NOTE | 2017-06-08 08:34 | PN ---
SUPERVISING PHYSICIAN: Ricki Flowers MD DATE: 06/07/17 SUBJECTIVE: The patient is lying in her hospital bed. She has no complaints of chest pain, shortness of breath, nausea, vomiting, or abdominal pain. We discussed that she would increase her physical therapy today and we discussed her visit with Dr. Pat, orthopedic surgeon. She has questions about her strength upon returning home and hopes to return home at some point after she regains some of her strength. OBJECTIVE: VITAL SIGNS: Afebrile. Heart rate 60. Blood pressure 132/70. Respiratory rate 16. O2 saturation 96% on 1 liter nasal cannula. LUNGS: Essentially clear to auscultation bilaterally. CARDIAC: Regular rate and rhythm. ABDOMEN: Soft, nondistended, nontender. Bowel sounds are positive. NEUROLOGIC: Awake, alert and oriented times three. LABORATORY: Sodium 131, potassium 4.6, chloride 93, BUN 28. Her shoulder x- ray per radiologic interpretation shows, four views of left shoulder, demonstrates diffuse osteopenia of the osseous structure, no acute appearing fracture, focal bone destruction or joint dislocation is seen. Severe narrowing of the glenohumeral joint is seen with hypertrophic osteophytic ridging of the glenoid with severe osteoarthritic changes, mild osteoarthritic changes of the acromioclavicular joint seen. Her knee x-ray per radiologic interpretation shows both bones osteopenic with advanced osteoarthritis throughout the knee, no acute fracture or aggressive destructive process. Small suprapatellar effusion. Advanced lateral tibial, femoral and patellofemoral joint space narrowing. All other labs and films have been reviewed via the EMR. ASSESSMENT: 1. Subacute nondisplaced fracture of the right superior pubic root. 2. Subacute displaced fracture of the right inferior pubic ramus. 3. Shoulder pain. 4. Knee pain. 5. Congestive heart failure of unknown etiology with a BNP on admission of 543. 6. Intractable pain. PLAN: We will continue present supportive care. Dr. Pat has seen the patient and physical therapy is continuing with strengthening and conditioning as per Dr. Pat's orders. We will need to begin discharge planning whether that be at a rehab facility, Swing Bed admission or to the longterm. She will continue to need strengthening and conditioning over the next several weeks. I have ordered some routine labs for in the morning as well as a [employer] consult. We will continue to monitor the patient closely and follow as needed. Dr. Flowers is the collaborating physician and available for consultation. [facility][id number] [facility]
[2017-06-08] MEDS: ALBUTEROL SULFATE 2.5 MG/3 ML VIAL NEB SCH ×2 (08:51→14:20)
[2017-06-08 14:50] VITALS: BP 137/75; TEMP 98.8; O2SAT 100
--- NOTE | 2017-06-16 14:15 | DS ---
SUPERVISING PHYSICIAN: Ricki Flowers MD DISCHARGE DIAGNOSIS: 1. Subacute nondisplaced fracture of the right superior pubic root. 2. Subacute displaced fracture of the right inferior pubic ramus. 3. Shoulder pain. 4. Knee pain. 5. Congestive heart failure of unknown etiology with a BNP on admission of 543. 6. Intractable pain. HISTORY OF PRESENT ILLNESS: This is an 87-year-old female patient who originally came to the hospital on 06/05/17. She was brought to the Emergency Room and was evaluated by Dr. Henri Flowers. She had been in pain every time she moved. She had a difficult time getting up from a seated or lying position. Around , she apparently fractured her pubic rami and has been wheelchair bound since. She has had increased pelvic and hip pain and denies any falls since that time. She also had some shortness of breath and had to use several pillows for 5 to 6 days prior to admission. She denied any fever, chest pain, palpitations, syncope or near syncopal episodes. She has some congestive heart failure and her saturations in the Emergency Room were around 85% when lying down. Oxygen supplementation corrected her O2 saturations. Her pelvic x-ray indicated a pelvic rami fracture and CT of the pelvis showed a subacute nondisplaced fracture of the right superior pubic ramus. She also had a subacute displaced fracture of the right inferior pubic ramus. Her sodium was slightly low at 134, potassium 4.3, chloride 98, CO2 was 28, BUN 17, creatinine 0.87. She was admitted to the Medical/Surgical floor as an inpatient for the congestive heart failure and intractable pain as well as displaced pelvic fracture. HOSPITAL COURSE: Over the course of her hospital stay, her breathing improved. She was diuresed significantly and her oxygen remained stable. Chest x-ray improved. Her pain was controlled with [place]. Dr. Pat evaluated the patient and recommended physical therapy and to utilize Dr. Pat's orders. She will be discharged to [facility] for physical therapy. DISCHARGE PLAN: The patient will be discharged to [facility] for physical therapy for strengthening and conditioning. They are to follow Dr. Pat's orders for physical therapy. She will be discharged on some [place] pain medication and she is to followup with Dr. Schuster on discharge from [facility] or within 2 weeks. She is to resume a diabetic diet. She is to followup with the hospital or Dr. Trotter for any further problems or complications. DISCHARGE MEDICATIONS: 1. Ditropan. 2. Ferrous sulfate. 3. Pravastatin. 4. MiraLAX. 5. Acetaminophen. 6. Dulcolax. 7. Milk of Magnesia. 8. Multivitamins. 9. Potassium chloride. 10. Citalopram. 11. Losartan. 12. Furosemide. 13. Vitamin D. 14. Meloxicam. 15. Omeprazole. 16. Albuterol sulfate. 17. Lisinopril. 18. Metoprolol succinate. 19. Hydrocodone. Dr. Flowers is the collaborating physician and available for consultation. #[id number] [facility]
== END 2017-06-08 16:01 | DRG 565 ==
LOC: ER 08:48 → MS 13:44
PROVIDERS: ADMIT Nurse Practitioner Family; ATTEND Nurse Practitioner Acute Care
DX: S32.591K Other specified fracture of right pubis, subsequent encounter for fracture with nonunion (principal); E87.1 Hypo-osmolality and hyponatremia; S32.511G Fracture of superior rim of right pubis, subsequent encounter for fracture with delayed healing; G89.11 Acute pain due to trauma; I11.0 Hypertensive heart disease with heart failure; M25.512 Pain in left shoulder; M25.561 Pain in right knee; I50.9 Heart failure, unspecified; M19.90 Unspecified osteoarthritis, unspecified site; K21.9 Gastro-esophageal reflux disease without esophagitis; K59.00 Constipation, unspecified; R32 Unspecified urinary incontinence; Z96.642 Presence of left artificial hip joint; Z79.1 Long term (current) use of non-steroidal anti-inflammatories (NSAID); Z79.899 Other long term (current) drug therapy; Z99.3 Dependence on wheelchair

== ENCOUNTER → 2017-09-21 | Outpatient (CLI) | payer MEDICARE, OTHER | END | disposition home or self-care (01) | LOC: GMATM 16:06 | PROVIDERS: ATTEND Nurse Practitioner Family | DX: R06.02 Shortness of breath (principal); J06.9 Acute upper respiratory infection, unspecified ==

== ENCOUNTER → 2018-01-25 | Outpatient (CLI) | payer MEDICARE, OTHER | LOC: GMAJ 10:54 | PROVIDERS: ATTEND Family Medicine | DX: I10 Essential (primary) hypertension (principal) ==